=== PATIENT | female | born 1985 | race Caucasian/White ===

== ENCOUNTER 2018-04-16 20:29 | Emergency (ER) | payer MEDICAID, OTHER ==
[2018-04-16 20:30] VITALS: BMI 24.5
[2018-04-16 21:31] VITALS: BP 105/72; PULSE 69; RESP 20; TEMP 97.8; O2SAT 100
--- NOTE | 2018-04-16 22:52 | C.PDOC ---
History Of Present Illness 33 year old female presents to the ER after she tripped going down some steps and twisted her bilateral ankles [employer]. Denies weakness, numbness, or LOC. Time Seen by Provider: 04/16/18 21:39 Chief Complaint (Nursing): Lower Extremity Problem/Injury History Per: Patient History/Exam Limitations: no limitations Onset/Duration Of Symptoms: Hrs Current Symptoms Are (Timing): Still Present Recent travel outside of the [place]: No - Ankle/Foot Description Of Injury: Twisted Past Medical History Reviewed: Historical Data, Nursing Documentation, Vital Signs Vital Signs: Last Vital Signs Temp 97.8 F 04/16/18 21:28 Pulse 69 04/16/18 21:28 Resp 20 04/16/18 21:28 BP 105/72 04/16/18 21:28 Pulse Ox 100 04/16/18 22:53 - Medical History PMH: Anemia - [facility] Procedures EXTRACTION OF POC, LOW CERVICAL, OPEN APPROACH (02/19/16) TRANSFUSE NONAUT RED BLOOD CELLS IN PERIPH VEIN, PERC (02/19/16) Family History: States: Unknown Family Hx - Social History Hx Alcohol Use: No Hx Substance Use: No - Immunization History Hx Tetanus Toxoid Vaccination: Yes Hx Influenza Vaccination: No Hx Pneumococcal Vaccination: No Review Of Systems Musculoskeletal: Positive for: Foot Pain Neurological: Negative for: Weakness, Numbness Physical Exam - Physical Exam Appears: Non-toxic Skin: Normal Color, Warm, Dry Head: Atraumatic, Normacephalic Eye(s): bilateral: Normal Inspection Extremity: Capillary Refill (<2 seconds), No Deformity, No Swelling, Other ( Tenderness to lateral aspect of malleolus bilaterally. ROM of ankles causes pain. ROM of toes and foot normal.) Pulses: Left Dorsalis Pedis: Normal, Right Dorsalis Pedis: Normal Neurological/Psych: Oriented x3, Normal Speech, Normal Motor, Normal Sensation Gait: Unable To Assess ED Course And Treatment O2 Sat by Pulse Oximetry: 100 (Room air) Pulse Ox Interpretation: Normal - Other Rad Bilateral ankle x-ray X-Ray: Interpreted by Me, Viewed By Me Interpretation: No acute fractures or dislocations. Progress Note: Motrin administered for pain. Bilateral ankle x-ray ordered, results were negative. Patient is ambulatory in the ER with limp to left greater than right, patient placed in hsannan wrap and discharged home with instuctions to follow up with PMD or return if symptoms worsen. 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 - Scribe Statement The provider has reviewed the documentation as recorded by the Scribsil Cano All medical record entries made by the Bashiribsil were at my direction and personally dictated by me. I have reviewed the chart and agree that the record accurately reflects my personal performance of the history, physical exam, medical decision making, and the department course for this patient. I have also personally directed, reviewed, and agree with the discharge instructions and disposition.
--- NOTE | 2018-04-17 08:23 | RAD ---
PROCEDURE: Bilateral ankles dated 12/17/2017. HISTORY: fall, twisting injury b/l COMPARISON: No prior TECHNIQUE: Three views of the right and left ankles performed FINDINGS: No evidence of acute displaced fracture nor dislocation. The osseous structures are intact. Talar dome intact. Ankle mortise maintained. There appears to be some minor soft tissue swelling over the both lateral malleoli IMPRESSION: No acute fractures. There appears be some minor bilateral soft tissue swelling as above
== END 2018-04-16 22:56 | disposition home or self-care (01) ==
LOC: C.ER 20:29
DX: S93.402A Sprain of unspecified ligament of left ankle, initial encounter (principal); S93.401A Sprain of unspecified ligament of right ankle, initial encounter; X50.9XXA Other and unspecified overexertion or strenuous movements or postures, initial encounter